=== PATIENT | female | born 2000 | race African-American/Black ===

== ENCOUNTER 2024-05-24 20:05 | Emergency (ER) | payer BC, SELFPAY ==
[2024-05-24 20:05] VITALS: BMI 27.7
[2024-05-24 20:07] VITALS: BP 124/78
[2024-05-24 20:19] LABS: % Basophils 0.5 % (0-2); % Eosinophils 6.1 % (0-6); % Immature Granulocytes 0.3 % (0-0.5); % Lymphocytes 30.3 % (20.5-51.1); % Monocytes 9.4 % (1.7-9.3); % Neutrophils 53.4 % (42.2-75.2); Absolute Basophils 0.1 10^3/uL (0-0.2); Absolute Eosinophils 0.7 10^3/uL (0-0.7); Absolute Lymphocytes 3.4 10^3/uL (1.2-3.4); Absolute Neutrophils 5.9 10^3/uL (1.4-6.5); Hematocrit 35.9 % (37.0-47.0); Hemoglobin 11.9 g/dL (12.0-16.0); Mean Corp Hgb Conc. 33.1 g/dL (33.0-37.0); Mean Corpuscular Hgb 27.7 pg (27.0-31.0); Mean Corpuscular Volume 83.5 fL (81.0-99.0); Mean Platelet Volume 9.7 fL (7.4-10.4); Nucleated Red Blood Cells % 0 %; Platelet Count 261 10^3/uL (130-400); Red Cell Dist. Width 13.7 % (11.5-14.5); White Blood Cell Count 11.1 10^3/uL (4.8-10.8)
[2024-05-24 20:33] LABS: ALT (SGPT) 20 U/L (0-35); AST (SGOT) 48 U/L (14-36); Albumin 4.8 g/dl (3.5-5.0); Alkaline Phosphatase 57 U/L (38-126); Blood Urea Nitrogen 12 mg/dl (7-17); Calcium 9.5 mg/dl (8.4-10.2); Carbon Dioxide 27 mmol/L (22-30); Chloride 102 mmol/L (98-107); Glucose 103 mg/dl (70-99); Lipase 115 U/L (23-300); Sodium 139 mmol/L (135-145); Total Bilirubin 0.5 mg/dl (0.2-1.3); Total Protein 7.5 g/dl (6.3-8.2); eGFR > 60.00
[2024-05-24 20:35] LABS: HCG, Serum Qualitative Screen Negative
[2024-05-24 21:11] VITALS: BP 107/68
[2024-05-24 22:00] VITALS: BP 96/62
--- NOTE | 2024-05-24 22:23 | ED.GENMED ---
History of Present Illness
General
Chief Complaint: Abdominal Pain
Time Seen by Provider: 05/24/24 21:18
History of Present Illness
History of Present Illness:
23-year-old otherwise healthy female presents to the emergency department for evaluation of epigastric pain that began last night after eating sushi. The pain lasted several hours before improving. Pain recurred again today after eating
Ch[place], she notes that she was pain-free this morning however intentionally did not eat out of fear of having pain recur. Denies any nausea vomiting or diarrhea. No fevers or chills. Pain is minimal at this time. No prior abdominal surgeries
Review of Systems
Review of Systems
Allergies reviewed?: Yes
All Other Systems: ROS reviewed and negative except as documented in HPI and ROS
Phy Exam
Physical Exam
Physical Exam:
GEN: Well appearing, NAD, WDWN
HEENT: Oral mucosa moist, no scleral icterus
Cardiac: Regular rate
Lung: No respiratory distress, no tachypnea
Abdomen: Soft, tender to the epigastrium, negative Bonilla sign
MSK: No gross deformity or injuries
Skin: Good color, no pallor or jaundice, no rashes
Neuro: AO x3, moves all extremities freely
Psych: Calm, cooperative
Course
Orders/Labs/Results
Orders:
Orders
05/24/24 20:10
Test Result ONCE
05/24/24 20:13
Complete Blood Count/With Diff Urgent
Comprehensive Metabolic Panel Urgent
HCG, Serum Qualitative Screen Urgent
Lipase Urgent
05/24/24 21:49
US Abdomen Complete/Upper Urgent
Comment:
Reason For Exam: RUQ/epigastric pain
Abnormal Lab Results
05/24/24
20:13
WBC 11.1 H 10^3/uL
(4.8-10.8)
Hgb 11.9 L g/dL
(12.0-16.0)
Hct 35.9 L %
(37.0-47.0)
Absolute Monos (auto) 1.0 H 10^3/uL
(0.1-0.6)
Monocytes % 9.4 H %
(1.7-9.3)
Eosinophils % 6.1 H %
(0-6)
Glucose 103 H mg/dl
(70-99)
AST 48 H U/L
(14-36)
05/24/24 20:13
05/24/24 20:13
Vital Signs
Initial and Last Documented VS:
Initial Vital Signs
Pulse Resp BP Pulse Ox
102 16 124/78 100
05/24/24 20:07 05/24/24 20:07 05/24/24 20:07 05/24/24 20:07
Last Documented Vital Signs
Temp Pulse Resp BP Pulse Ox
99.0 F 81 17 120/61 100
05/25/24 00:00 05/25/24 00:02 05/24/24 23:30 05/25/24 00:02 05/24/24 23:30
MDM/Problems Addressed
MDM/Problems Addressed:
Ultrasound reassuring, labs unremarkable. Given postprandial pain suspect gastritis/PUD, will start on PPIs empirically and recommend GI follow-up
*Critical Care Note
Total Time (30-74mins, 75-104mins- exclusive of procedures): Not Applicable
ED Attending Note
-
Portions of this chart may have been created with voice recognition software.� Occasional wrong word or��sound alike� substitutions may have occurred due to the inherent limitations of voice recognition software.
Discharge Plan
Departure
Patient Disposition: Home (Routine Discharge)
Date of Disposition: 05/25/24
Time of Disposition: 00:47
Patient with high blood pressure during this ER visit?: No
Discharge Problem:
Acute epigastric pain
Instructions: Gastritis (DC)
Prescriptions:
New
pantoprazole 40 mg tablet,delayed release (DR/EC)
40 mg PO DAILY Qty: 10 0RF
Referrals:
Shaquille Hinds MD [Active] -
Chencho Medrano DO [Family Provider] -
Interventions
Interventions:
*Risk Screen - Suicide Last Done: 05/24/24 21:40
*General Assessment Last Done: 05/25/24 00:56
*Neglect/Abuse Screening Last Done: 05/25/24 00:56
ED- Fall Risk Assessment Last Done: 05/25/24 00:56
*ED COVID-19 Vaccine History Last Done: 05/24/24 21:39
*Nursing Disposition Last Done: 05/25/24 00:57
[facility] Assessment Last Done: 05/24/24 21:13
Discharge Date and Time
Print Language: EMIRATI
[2024-05-25 00:02] VITALS: BP 120/61
== END 2024-05-25 00:58 | disposition home or self-care (01) ==
LOC: EMR 20:05
PROVIDERS: Emergency Medicine; EMERGENCY PHYSICIAN Emergency Medicine; FAMILY PHYSICIAN Family Medicine
DX: R10.13 Epigastric pain (principal)
CPT/HCPCS: 99284; 76700; 80053; 83690; 84703; 85025